=== PATIENT | male | born 1930 | race Caucasian/White ===

== ENCOUNTER 2020-05-04 10:19 | Inpatient (IN) ==
[2020-05-04] MEDS ORDERED: MAGNESIUM SULF RIDER 4 GM in PREMIX 1 EACH IV PRN (10:22)
[2020-05-04] MEDS ORDERED: ONDANSETRON 4 MG/2 ML VIAL IV PRN (10:22)
[2020-05-04] MEDS ORDERED: SIMETHICONE CHEW 125 MG TABLET PO PRN (10:22)
[2020-05-04] MEDS ORDERED: LACTULOSE 20 GM/30 ML UDCUP PO PRN (10:22)
[2020-05-04] MEDS ORDERED: POTASSIUM CHLORIDE 20 MEQ TABLET PO PRN (10:22)
[2020-05-04] MEDS ORDERED: ACETAMINOPHEN 325 MG TABLET PO PRN (10:22)
[2020-05-04] MEDS ORDERED: MAGNESIUM SULF RIDER 2 GM in PREMIX 1 EACH IV PRN (10:22)
[2020-05-04] MEDS ORDERED: BISACODYL 5 MG TABLET PO PRN (10:22)
[2020-05-04] MEDS ORDERED: hydrALAZINE 20 MG/1 ML VIAL IV PRN (10:22)
[2020-05-04] MEDS ORDERED: ALUMINUM/MAGNES/SIMETH MAX STR 30 ML UDCUP PO PRN (10:22)
[2020-05-04] MEDS ORDERED: ZALEPLON 5 MG CAPSULE PO PRN (10:22)
[2020-05-04] MEDS ORDERED: CALCIUM CARBONATE CHEW 500 MG TABLET PO PRN (10:22)
[2020-05-04] MEDS ORDERED: guaiFENesin/DM ER 600-30 MG TABLET PO PRN (10:22)
[2020-05-04 11:44] LABS: Basophils % 0.3 % (0.0-0.8); Eosinophils # 0.1 10*3/uL (0.0-0.87); Eosinophils % 1.6 % (0.00-10.9); Hematocrit 38.4 VOL% (42.0-52.0); Hemoglobin 12.3 GM/DL (14.0-18.0); Immature Granulocytes % 0.3 %; Immature Granulocytes Absolute 0.02 #; Lymphocytes # 1.1 10*3/uL (1.4-4.0); Lymphocytes % 15.9 % (21.2-54.2); Mean Platelet Volume 10.4 FL (9.6-12.0); Monocytes % 9.2 % (1.7-12.7); Neutrophils % 72.7 % (38.7-73.9); Platelet Count 161 T/CUMM (130-400); Red Blood Count 3.84 MC/CUMM (3.8-5.5); Red Cell Distribution Width 13.7 % (9.3-17.3); White Blood Count 6.9 T/CUMM (4-12)
[2020-05-04 12:18] LABS: Albumin 3.4 G/DL (3.4-5.0); Calcium 8.9 MG/DL (8.5-10.1); Osmolality,Calculated 285.3 MOS/KG (273-304); Thyroid Stimulating Hormone 2.96 uIU/ml (0.358-3.74); Total Protein 7.4 G/DL (6.4-8.3)
[2020-05-04 15:16] LABS: Bilirubin,Urine Negative (Negative); Blood, Urine Negative (Negative); Glucose,Urine (UA) Negative (Negative); Ketones,Urine 5 mg/dL (Negative); Mucus,Urine Occasional /LPF (Occasional); Nitrite,Urine Negative (Negative); Protein,Urine Negative; RBC,Urine 2 /HPF (0-4); Urine Appearance CLEAR (Clear); Urine Color Yellow (Yellow); Urine Urobilinogen < 2.0 EU/DL (0.2-1.0); WBC,Urine <1 /HPF (0-6)
[2020-05-05 06:49] LABS: Basophils % 0.1 % (0.0-0.8); Eosinophils # 0.1 10*3/uL (0.0-0.87); Eosinophils % 1.3 % (0.00-10.9); Hematocrit 37.5 VOL% (42.0-52.0); Hemoglobin 11.9 GM/DL (14.0-18.0); Immature Granulocytes % 0.4 %; Immature Granulocytes Absolute 0.03 #; Lymphocytes % 13.4 % (21.2-54.2); Mean Corpuscular HGB Conc 31.7 GM/DL (32-36); Mean Corpuscular Volume 99.7 FL (87-102); Mean Platelet Volume 10.7 FL (9.6-12.0); Monocytes % 8.7 % (1.7-12.7); Neutrophils % 76.1 % (38.7-73.9); Platelet Count 167 T/CUMM (130-400); Red Blood Count 3.76 MC/CUMM (3.8-5.5); Red Cell Distribution Width 13.5 % (9.3-17.3); White Blood Count 7.7 T/CUMM (4-12)
[2020-05-05 07:16] LABS: Calcium 9.1 MG/DL (8.5-10.1); Osmolality,Calculated 281.4 MOS/KG (273-304)
[2020-05-05] MEDS ORDERED: DIAZEPAM 5 MG TABLET PO ONE (07:49)
[2020-05-05 08:29] LABS: PT Patient Result 10.6 SECS (9.8-11.9)
[2020-05-05] MEDS: PANTOPRAZOLE 40 MG TABLET PO SCH (09:07)
[2020-05-05] MEDS: SODIUM CHLORIDE 0.45% 1,000 ML IV SCH (09:08)
[2020-05-05] MEDS ORDERED: METOPROLOL SUCCINATE XL 25 MG TABLET PO SCH (12:30)
[2020-05-05] MEDS: TAMSULOSIN 0.4 MG CAPSULE PO SCH (12:43)
[2020-05-05] MEDS: DOXYCYCLINE HYCLATE 100 MG CAPSULE PO SCH ×2 (12:43→21:17)
[2020-05-05] MEDS: FINASTERIDE 5 MG TABLET PO SCH (12:43)
[2020-05-05] MEDS: FUROSEMIDE 20 MG TABLET PO SCH (15:44)
[2020-05-05] MEDS: MUPIROCIN 2% OINT 22 GM TUBE TOP SCH ×2 (15:44→21:19)
[2020-05-05] MEDS: MAGNESIUM OXIDE 400 MG TABLET PO SCH (21:17)
[2020-05-06 06:00] LABS: Basophils % 0.4 % (0.0-0.8); Eosinophils # 0.2 10*3/uL (0.0-0.87); Eosinophils % 3.2 % (0.00-10.9); Hematocrit 35.2 VOL% (42.0-52.0); Hemoglobin 11.4 GM/DL (14.0-18.0); Immature Granulocytes % 0.4 %; Immature Granulocytes Absolute 0.02 #; Lymphocytes % 17.4 % (21.2-54.2); Mean Corpuscular HGB Conc 32.4 GM/DL (32-36); Mean Corpuscular Volume 98.6 FL (87-102); Mean Platelet Volume 11.2 FL (9.6-12.0); Neutrophils % 66.6 % (38.7-73.9); Platelet Count 151 T/CUMM (130-400); Red Blood Count 3.57 MC/CUMM (3.8-5.5); Red Cell Distribution Width 13.2 % (9.3-17.3); White Blood Count 5.7 T/CUMM (4-12)
[2020-05-06 06:17] LABS: Calcium 8.8 MG/DL (8.5-10.1); Osmolality,Calculated 281.4 MOS/KG (273-304)
[2020-05-06] MEDS: SODIUM CHLORIDE 0.45% 1,000 ML IV SCH (10:41)
[2020-05-06] MEDS: DOXYCYCLINE HYCLATE 100 MG CAPSULE PO SCH ×2 (10:42→20:29)
[2020-05-06] MEDS: PANTOPRAZOLE 40 MG TABLET PO SCH (10:42)
[2020-05-06] MEDS: METOPROLOL SUCCINATE XL 25 MG TABLET PO SCH (10:42)
[2020-05-06] MEDS: FINASTERIDE 5 MG TABLET PO SCH (10:42)
[2020-05-06] MEDS: MAGNESIUM OXIDE 400 MG TABLET PO SCH ×2 (10:42→20:30)
[2020-05-06] MEDS: TAMSULOSIN 0.4 MG CAPSULE PO SCH (10:42)
[2020-05-06] MEDS: MUPIROCIN 2% OINT 22 GM TUBE TOP SCH ×3 (10:42→20:30)
[2020-05-06] MEDS: FUROSEMIDE 20 MG TABLET PO SCH (10:49)
[2020-05-07 05:51] LABS: Basophils % 0.4 % (0.0-0.8); Eosinophils # 0.2 10*3/uL (0.0-0.87); Hematocrit 35.2 VOL% (42.0-52.0); Hemoglobin 11.5 GM/DL (14.0-18.0); Immature Granulocytes % 0.2 %; Immature Granulocytes Absolute 0.01 #; Lymphocytes # 1.2 10*3/uL (1.4-4.0); Lymphocytes % 21.8 % (21.2-54.2); Mean Corpuscular HGB Conc 32.7 GM/DL (32-36); Mean Corpuscular Volume 98.1 FL (87-102); Mean Platelet Volume 10.9 FL (9.6-12.0); Monocytes % 12.4 % (1.7-12.7); Neutrophils % 61.2 % (38.7-73.9); Platelet Count 169 T/CUMM (130-400); Red Blood Count 3.59 MC/CUMM (3.8-5.5); Red Cell Distribution Width 13.2 % (9.3-17.3); White Blood Count 5.6 T/CUMM (4-12)
[2020-05-07 06:06] LABS: Calcium 8.7 MG/DL (8.5-10.1); Osmolality,Calculated 282.4 MOS/KG (273-304)
[2020-05-07] MEDS: SODIUM CHLORIDE 0.45% 1,000 ML IV SCH (09:35)
[2020-05-07] MEDS: DOXYCYCLINE HYCLATE 100 MG CAPSULE PO SCH ×2 (10:54→22:37)
[2020-05-07] MEDS: MUPIROCIN 2% OINT 22 GM TUBE TOP SCH ×3 (10:54→22:37)
[2020-05-07] MEDS: TAMSULOSIN 0.4 MG CAPSULE PO SCH (10:54)
[2020-05-07] MEDS: FINASTERIDE 5 MG TABLET PO SCH (10:54)
[2020-05-07] MEDS: PANTOPRAZOLE 40 MG TABLET PO SCH (10:54)
[2020-05-07] MEDS: METOPROLOL SUCCINATE XL 25 MG TABLET PO SCH (10:54)
[2020-05-07] MEDS: FUROSEMIDE 20 MG TABLET PO SCH (10:54)
[2020-05-07] MEDS: MAGNESIUM OXIDE 400 MG TABLET PO SCH ×2 (10:54→22:37)
[2020-05-08 05:46] LABS: Basophils % 0.3 % (0.0-0.8); Eosinophils # 0.2 10*3/uL (0.0-0.87); Eosinophils % 3.9 % (0.00-10.9); Hematocrit 35.8 VOL% (42.0-52.0); Hemoglobin 11.6 GM/DL (14.0-18.0); Immature Granulocytes % 0.3 %; Immature Granulocytes Absolute 0.02 #; Lymphocytes # 1.4 10*3/uL (1.4-4.0); Lymphocytes % 23.1 % (21.2-54.2); Mean Corpuscular HGB Conc 32.4 GM/DL (32-36); Mean Corpuscular Volume 98.4 FL (87-102); Mean Platelet Volume 10.8 FL (9.6-12.0); Monocytes % 13.3 % (1.7-12.7); Neutrophils % 59.1 % (38.7-73.9); Platelet Count 174 T/CUMM (130-400); Red Blood Count 3.64 MC/CUMM (3.8-5.5); Red Cell Distribution Width 13.2 % (9.3-17.3); White Blood Count 5.9 T/CUMM (4-12)
[2020-05-08 06:06] LABS: Calcium 8.8 MG/DL (8.5-10.1); Osmolality,Calculated 284.3 MOS/KG (273-304)
[2020-05-08] MEDS ORDERED: ceFAZolin 2,000 MG in PREMIX 1 EACH IV ONE (08:52)
[2020-05-08] MEDS ORDERED: HEPARIN 5,000 UNIT/1 ML VIAL ONE (10:06)
[2020-05-08] MEDS ORDERED: LIDOCAINE 1% 20 ML VIAL ONE (10:07)
[2020-05-08] MEDS ORDERED: DEXMEDETOMIDINE 200 MCG/2 ML VIAL ONE (10:30)
[2020-05-08] MEDS ORDERED: LIDOCAINE 2% 5 ML VIAL ONE (10:33)
[2020-05-08] MEDS ORDERED: propofoL 200 MG/20 ML VIAL IV ONE (10:34)
[2020-05-08] MEDS ORDERED: ceFAZolin 1,000 MG VIAL ONE ×2 (11:21)
[2020-05-08] MEDS ORDERED: MICROFIBRILLAR COLLAGEN POWDER 1 GM CAN TOP ONE (11:28)
[2020-05-08] MEDS ORDERED: PHENYLEPHRINE 10 MG/1 ML VIAL IV ONE (11:29)
[2020-05-08] MEDS ORDERED: TISSUE ADHESIVE 1 EACH APPLICATOR TOP ONE (11:39)
[2020-05-08] MEDS ORDERED: SEVOFLURANE 1 UNIT/15 MINUTE INH ONE (11:56)
[2020-05-08] MEDS ORDERED: KETOROLAC 30 MG/1 ML VIAL IV ONE (11:58)
[2020-05-08] MEDS: MUPIROCIN 2% OINT 22 GM TUBE TOP SCH ×3 (15:05→21:17)
[2020-05-08] MEDS: SODIUM CHLORIDE 0.45% 1,000 ML IV SCH (15:25)
[2020-05-08] MEDS: FUROSEMIDE 20 MG TABLET PO SCH (15:25)
[2020-05-08] MEDS: TAMSULOSIN 0.4 MG CAPSULE PO SCH (15:25)
[2020-05-08] MEDS: MAGNESIUM OXIDE 400 MG TABLET PO SCH ×2 (15:26→21:17)
[2020-05-08] MEDS: FINASTERIDE 5 MG TABLET PO SCH (15:26)
[2020-05-08] MEDS: PANTOPRAZOLE 40 MG TABLET PO SCH (15:26)
[2020-05-08] MEDS: METOPROLOL SUCCINATE XL 25 MG TABLET PO SCH (15:26)
[2020-05-08] MEDS: DOXYCYCLINE HYCLATE 100 MG CAPSULE PO SCH ×2 (15:26→21:17)
[2020-05-08] MEDS: KETOROLAC 10 MG TABLET PO SCH ×2 (15:27→18:21)
[2020-05-09] MEDS: KETOROLAC 10 MG TABLET PO SCH ×3 (00:53→11:19)
[2020-05-09 07:15] LABS: Basophils % 0.2 % (0.0-0.8); Eosinophils # 0.2 10*3/uL (0.0-0.87); Eosinophils % 2.6 % (0.00-10.9); Hematocrit 37.5 VOL% (42.0-52.0); Hemoglobin 12.4 GM/DL (14.0-18.0); Immature Granulocytes % 0.3 %; Immature Granulocytes Absolute 0.02 #; Lymphocytes # 0.8 10*3/uL (1.4-4.0); Lymphocytes % 12.3 % (21.2-54.2); Mean Corpuscular HGB Conc 33.1 GM/DL (32-36); Mean Corpuscular Volume 97.4 FL (87-102); Monocytes % 8.9 % (1.7-12.7); Neutrophils % 75.7 % (38.7-73.9); Platelet Count 188 T/CUMM (130-400); Red Blood Count 3.85 MC/CUMM (3.8-5.5); Red Cell Distribution Width 13.2 % (9.3-17.3); White Blood Count 6.7 T/CUMM (4-12)
[2020-05-09] MEDS: TAMSULOSIN 0.4 MG CAPSULE PO SCH (08:51)
[2020-05-09] MEDS: MUPIROCIN 2% OINT 22 GM TUBE TOP SCH ×2 (08:51→14:40)
[2020-05-09] MEDS: MAGNESIUM OXIDE 400 MG TABLET PO SCH (08:51)
[2020-05-09] MEDS: FINASTERIDE 5 MG TABLET PO SCH (08:51)
[2020-05-09] MEDS: METOPROLOL SUCCINATE XL 25 MG TABLET PO SCH (08:51)
[2020-05-09] MEDS: DOXYCYCLINE HYCLATE 100 MG CAPSULE PO SCH (08:51)
[2020-05-09] MEDS: FUROSEMIDE 20 MG TABLET PO SCH (08:51)
[2020-05-09] MEDS: PANTOPRAZOLE 40 MG TABLET PO SCH (08:51)
[2020-05-09] MEDS ORDERED: APIXABAN 5 MG TABLET PO SCH (09:00)
[2020-05-09] MEDS: SODIUM CHLORIDE 0.45% 1,000 ML IV SCH (09:29)
[2020-05-09 18:11] VITALS: BP 142/88
== END 2020-05-09 18:32 | disposition home or self-care (01) | DRG 253 ==
LOC: N.3E → OBSVTOIN 10:45
PROVIDERS: ADMIT Internal Medicine Cardiovascular Disease; ATTEND Internal Medicine Cardiovascular Disease